=== PATIENT | female | born 1995 | race Caucasian/White ===

== ENCOUNTER → 2021-01-27 | Outpatient (CLI) | payer OTHER ==
[~2021-01-27] MED LIST: FLUO20 PO; HYDACE5 PO; PRED20 PO; Rituxan10 MG/ML IV; TRAZ50 PO
== END ==
LOC: LAB 18:03 → LAB SHORT 18:03
DX: M54.9 Dorsalgia, unspecified (principal); Z91.048 Other nonmedicinal substance allergy status; Z91.018 Allergy to other foods
CPT/HCPCS: 87077; 87086; 87186